=== PATIENT | male | born 1980 | race Caucasian/White ===

== ENCOUNTER → 2019-12-26 | Outpatient (CLI) | payer BC, OTHER ==
[~2019-12-26] MED LIST: HYOSCYAMINE0.125 M1 SUBLING; IBUPROFEN 200200 M1 PO; KEFLEX500 MG PO; LIPITOR10 MG; PERCOCET PO; PHENAZOPYRIDIN200 M2 PO; TESTOSTERONE INJ.; ZOFRAN ODT4 MG PO
== END ==
LOC: SJCVCIMAG 12-06 16:41
PROVIDERS: ATTEND Internal Medicine Cardiovascular Disease
DX: R06.09 Other forms of dyspnea (principal); R00.2 Palpitations; G47.33 Obstructive sleep apnea (adult) (pediatric); I25.10 Atherosclerotic heart disease of native coronary artery without angina pectoris; R93.1 Abnormal findings on diagnostic imaging of heart and coronary circulation; I48.0 Paroxysmal atrial fibrillation; E78.00 Pure hypercholesterolemia, unspecified; Z79.82 Long term (current) use of aspirin; Z79.899 Other long term (current) drug therapy; Z82.49 Family history of ischemic heart disease and other diseases of the circulatory system